=== PATIENT | male | born 1990 | race African-American/Black ===

== ENCOUNTER 2019-01-16 08:14 | Emergency (ER) | payer OTHER, MEDICAID ==
[~2019-01-16] VITALS: Ht 193 cm; Wt 116.0 kg
[2019-01-16] MEDS ORDERED: IBUPROFEN 800MG TABLET PO ONE (09:00)
[2019-01-16 09:56] VITALS: BP 135/80
== END 2019-01-16 10:03 | disposition home or self-care (01) ==
LOC: ER 08:14
DX: M25.532 Pain in left wrist (principal)
CPT/HCPCS: 73110; 99283; Z7610